=== PATIENT | female | born 2000 | race Caucasian/White ===

== ENCOUNTER 2024-09-22 06:29 | Outpatient (REF) | payer OTHER, SELFPAY ==
--- NOTE | ~2024-09-22 | US_ITS ---
CLINICAL HISTORY: NAUSEA, LUMPINESS MID ABD US abdomen complete with duplex and color Doppler Comparison: None Findings: The visualized pancreas, aorta, and inferior vena cava are unremarkable. Liver normal size and echotexture. Right lobe 13.7 cm length. No focal hepatic masses. Common duct 1.1 mm diameter. Physiologic distention of the gallbladder. No gallstones or sludge. 4 x 4 x 3 mm gallbladder polyp. No pericholecystic fluid. No sonographic Briceno sign. Main portal vein antegrade. Right kidney normal size, 10.3 cm in length. Normal cortical width and echotexture. No solid or cystic renal masses. No nephrolithiasis or hydronephrosis. Left kidney normal, 10.0 cm in length. Normal cortical width and echotexture. No solid or cystic renal masses. No nephrolithiasis or hydronephrosis. Spleen measures 10.0 cm. No splenic masses. No ascites. No lymphadenopathy. Impression: 1. 4 mm gallbladder polyp consider annual follow-up. 2. No sonographic correlate to the area of clinical concern left periumbilical abdominal wall region. This document has been electronically signed by: Sudheer Virk MD on 09/22/2024 12:56:25
== END 2024-09-22 06:30 | disposition home or self-care (01) ==
LOC: HO.UMASIMG 06:29
PROVIDERS: Visit Provider Family Medicine
DX: R22.9 Localized swelling, mass and lump, unspecified (principal); K59.00 Constipation, unspecified; R11.0 Nausea
CPT/HCPCS: 76700

== ENCOUNTER → 2024-09-22 10:00 | Outpatient (BNV) | payer OTHER, SELFPAY | PROVIDERS: Visit Provider Radiology Diagnostic Radiology | DX: R11.0 Nausea (principal); R19.09 Other intra-abdominal and pelvic swelling, mass and lump; K59.00 Constipation, unspecified; K82.8 Other specified diseases of gallbladder | CPT/HCPCS: 76700 ==

== ENCOUNTER 2024-11-17 10:24 | Outpatient (REF) | payer OTHER, SELFPAY ==
--- NOTE | ~2024-11-17 | CT_ITS ---
CLINICAL HISTORY: CONSTIPATION CT abdomen and pelvis with contrast Comparison: None Findings: The visualized portions of the lungs are normal in appearance. The liver is normal in size without suspicious focal hepatic lesions. No intrahepatic or extrahepatic ductal dilatation is seen. The hepatic and portal veins are patent. No calcified gallstones in the gallbladder. Pancreas, spleen and adrenals are normal in appearance. No suspicious focal lesion of the kidneys. No hydronephrosis or calculi. The abdominal aorta demonstrates no evidence of aneurysmal dilatation or dissection. The colon is normal in appearance and without wall thickening or inflammatory change. [id number] amount of fecal material within the colon. Stool impaction of the rectum. No evidence of bowel obstruction. No evidence of acute appendicitis. The pelvic organs are within normal limits. No intraperitoneal free air or fluid is visualized. No pathologic lymphadenopathy is seen. There are no osseous or soft tissue abnormalities. IMPRESSION: No acute findings. [id number] stool burden. This document has been electronically signed by: Dorothea Caldwell MD on 11/18/2024 13:37:33
[2024-11-17] MEDS: iohexoL 350 MG/ML 100 ML INFUS..BTL IV (13:12)
[2024-11-17] MEDS: Barium Sulfate Oral (Mocha) 450 ML ORAL.SUSP PO ×2 (13:13)
== END 2024-11-17 10:25 | disposition home or self-care (01) ==
LOC: HO.CT 10:24
PROVIDERS: PCP Family Medicine; Visit Provider Family Medicine
DX: K59.00 Constipation, unspecified (principal)
CPT/HCPCS: 74177; Q9967

== ENCOUNTER → 2024-11-17 12:48 | Outpatient (BNV) | payer OTHER, SELFPAY | PROVIDERS: PCP Family Medicine; Visit Provider Nuclear Medicine | DX: K56.41 Fecal impaction (principal) | CPT/HCPCS: 74177 ==